=== PATIENT | male | born 1965 | race Caucasian/White ===

== ENCOUNTER 2020-04-29 04:30 | Observation (INO) | payer OTHER ==
[~2020-04-29] VITALS: Ht 160 cm; Wt 93.1 kg
--- NOTE | 2020-04-29 04:56 | EKG ---
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
[2020-04-29] MEDS ORDERED: NITROGLYCERIN OINT 1 GM PACKET. TP ONE (05:00)
[2020-04-29] MEDS ORDERED: IV RINGERS SOLUTION,LACTATED 1,000 ML IV SCH (05:00)
[2020-04-29] MEDS ORDERED: ASPIRIN CHEWABLE 81 MG TABLET. PO ONE (05:00)
[2020-04-29] MEDS ORDERED: MORPHINE SULFATE 2 MG/ML DISP.SYRIN. IV ONE (05:00)
[2020-04-29] MEDS ORDERED: ENOXAPARIN ** NOTE DOSE ** SYRINGE SQ ONE (05:00)
[2020-04-29 05:01] LABS: BASO % 1 % (0-3); EOS # 0.3 x10^3/uL (0.0-0.7); EOS % 5 % (0-3); HEMATOCRIT 42.3 % (39.0-53.0); HEMOGLOBIN 14.3 g/dL (13.0-17.5); LYMPH # 1.8 x10^3/uL (1.0-4.8); LYMPH % 24 % (24-48); MEAN CORPUSCULAR HEMOGLOBIN 31 pg (25-35); MEAN CORPUSCULAR HGB CONC 34 g/dL (31-37); MEAN CORPUSCULAR VOLUME 92 fL (79-100); MONO # 0.9 x10^3/uL (0.0-1.1); MONO % 12 % (0-9); NEUT # 4.5 x10^3uL (1.8-7.7); NEUT % 59 % (31-73); PLATELET COUNT 287 x10^3/uL (140-400); RED BLOOD COUNT 4.57 x10^6/uL (4.30-5.70); RED CELL DISTRIBUTION WIDTH 12.8 % (11.5-14.5); WHITE BLOOD COUNT 7.6 x10^3/uL (4.0-11.0)
[2020-04-29 05:09] LABS: CALCIUM 9.1 mg/dL (8.5-10.1); CREATININE 1.3 mg/dL (0.7-1.3); GFR 57.7; POTASSIUM 3.6 mmol/L (3.5-5.1)
[2020-04-29 05:26] LABS: ALBUMIN 3.3 g/dL (3.4-5.0); DIRECT BILIRUBIN 0.1 mg/dL (0.0-0.2); MAGNESIUM 2.1 mg/dL (1.8-2.4); TOTAL BILIRUBIN 0.3 mg/dL (0.2-1.0); TOTAL PROTEIN 7.2 g/dL (6.4-8.2)
[2020-04-29] MEDS ORDERED: MORPHINE SULFATE 2 MG/ML DISP.SYRIN. IVP PRN (06:15)
[2020-04-29] MEDS ORDERED: ONDANSETRON PF 4 MG/2 ML VIAL. IVP PRN (06:15)
--- NOTE | 2020-04-29 07:16 | RAD ---
Study: CR CHEST PA LATERAL Indication: Chest pain. Comparison: None. Findings: Within normal limits cardiomediastinal silhouette and leslie. No lobar consolidation, pleural effusion or pneumothorax. Impression: No acute radiographic abnormality of the chest. Electronically signed by: PUSHPA CASTRO MD (04/29/2020 7:13 AM) [id number]
--- NOTE | 2020-04-29 07:32 | PHYS DOC ---
Past History Past Medical History: Diabetes, Hypertension Past Surgical History: No Surgical History Smoking: Non-smoker Alcohol Use: Occasionally General Adult EDM: Chief Complaint: CHEST PAIN HPI: HPI: ".. I was just resting and sleeping .. but I got this severe chest pain.. .here in my Lt upper chest.. it radiated over in to my Lt shoulder .. just to about mid Lt. arm...It s been constant now about 30 minutes..." Patient is a 54 year old male who presents with above history of onset of acute left-sided chest pain that radiates into left deltoid area. Patient states he did have some shortness of breath and was diaphoretic. Patient denies any previous cardiac disorder. Does have a history of hypertension and did take hypertensive meds for a while approximately 5 years ago but stopped because they made him feel tired. Patient does not smoke. Patient denies any illicit drug use. Patient denies any trauma. Patient denies any travel or specific ill cont acts. No history of fever or chills. Does have a history of of episode of hypokalemia. Has been told that his blood sugars been elevated in the past. Patient not currently on any hypertensive meds. Patient does not currently follow-up with primary care. Review of Systems: Review of Systems: Constitutional: Denies fever or chills Eyes: Denies change in visual acuity HENT: Denies nasal congestion or sore throat Respiratory: Denies cough or shortness of breath Cardiovascular: Complains of left sided chest pain GI: Denies abdominal pain, nausea, vomiting, bloody stools or diarrhea : Denies dysuria Musculoskeletal: Denies back pain or joint pain Integument: Denies rash Neurologic: Denies headache, focal weakness or sensory changes Endocrine: Denies polyuria or polydipsia Lymphatic: Denies swollen glands Psychiatric: Denies depression or anxiety Heart Score: HEART Score for Chest Pain: HEART Score for Chest Pain Response (Comments) Value History Slighlty/Non-Suspicious 0 ECG Normal 0 Age >45 - < 65 1 Risk Factors 1 or 2 Risk Factors 1 Troponin < Normal Limit 0 Total 2 Risk Factors: Risk Factors: DM, Current or recent (<one month) smoker, HTN, HLP, family history of CAD, obesity. Risk Scores: Score 0 - 3: 2.5% MACE over next 6 weeks - Discharge Home Score 4 - 6: 20.3% MACE over next 6 weeks - Admit for Clinical Observation Score 7 - 10: 72.7% MACE over next 6 weeks - Early Invasive Strategies Family History: Family History: Hypertension Current Medications: Current Meds: See nursing for home meds Current Medications Medications (Trade) Dose Ordered Sig/Cori Start Time Stop Time Status Last Admin Dose Admin Aspirin (Aspirin Chewable) 81 mg [id number] 04/30/20 08:00 Enoxaparin Sodium (Lovenox 100mg Syringe) 100 mg Q12H 04/29/20 17:00 Lactated Ringer's 1,000 ml @ 100 mls/hr Q10H 04/29/20 05:00 04/29/20 14:59 04/29/20 05:14 100 MLS/HR Morphine Sulfate (Morphine 2mg Syringe) 2 mg PRN Q6HRS PRN 04/29/20 06:15 04/30/20 06:14 Nitroglycerin (Nitro-Bid Oint) 1 inch Q8HRS 04/29/20 14:00 Ondansetron HCl (Zofran) 4 mg PRN Q4HRS PRN 04/29/20 06:15 04/30/20 06:14 Allergies: Allergies: Allergies Coded Allergies Type Severity Reaction Last Updated Verified No Known Drug Allergies 04/29/20 No Physical Exam: PE: Constitutional: in acute distress, non-toxic appearance. [] HENT: Normocephalic, atraumatic, bilateral external ears normal, oropharynx moist, no oral exudates, nose normal. [] Eyes: PERRLA, EOMI, conjunctiva normal, no discharge. [] Neck: Normal range of motion, no tenderness, supple, no stridor. [] Cardiovascular:Heart rate regular rhythm, no murmur [] PMI slightly to the left Lungs & Thorax: Bilateral breath sounds equal at apex on auscultation [] Abdomen: Bowel sounds normal, soft, no tenderness, no masses, no pulsatile masses. Obese. Skin: Warm, diaphoretic, no erythema, no rash. Tattoos Back: No tenderness, no CVA tenderness. [] Extremities: No tenderness, no cyanosis, no clubbing, ROM intact, no edema. No cording appreciated Neurologic: Alert and oriented X 3, normal motor function, normal sensory function, no focal deficits noted. [] Psychologic: Affect anxious, judgement normal, mood normal. [] Current Patient Data: Labs: Laboratory Tests Test 04/29/20 04:38 White Blood Count 7.6 x10^3/uL (4.0-11.0) Red Blood Count 4.57 x10^6/uL (4.30-5.70) Hemoglobin 14.3 g/dL (13.0-17.5) Hematocrit 42.3 % (39.0-53.0) Mean Corpuscular Volume 92 fL (79-100) Mean Corpuscular Hemoglobin 31 pg (25-35) Mean Corpuscular Hemoglobin Concent 34 g/dL (31-37) Red Cell Distribution Width 12.8 % (11.5-14.5) Platelet Count 287 x10^3/uL (140-400) Neutrophils (%) (Auto) 59 % (31-73) Lymphocytes (%) (Auto) 24 % (24-48) Monocytes (%) (Auto) 12 % (0-9) H Eosinophils (%) (Auto) 5 % (0-3) H Basophils (%) (Auto) 1 % (0-3) Neutrophils # (Auto) 4.5 x10^3uL (1.8-7.7) Lymphocytes # (Auto) 1.8 x10^3/uL (1.0-4.8) Monocytes # (Auto) 0.9 x10^3/uL (0.0-1.1) Eosinophils # (Auto) 0.3 x10^3/uL (0.0-0.7) Basophils # (Auto) 0.0 x10^3/uL (0.0-0.2) Prothrombin Time 9.5 SEC (9.4-11.4) Prothrombin Time INR 0.9 (0.9-1.1) Activated Partial Thromboplast Time 25 SEC (23-33) D-Dimer (Marilyn) 0.34 mg/L (0.00-0.50) Sodium Level 138 mmol/L (136-145) Potassium Level 3.6 mmol/L (3.5-5.1) Chloride Level 99 mmol/L (98-107) Carbon Dioxide Level 27 mmol/L (21-32) Anion Gap 12 (6-14) Blood Urea Nitrogen 21 mg/dL (8-26) Creatinine 1.3 mg/dL (0.7-1.3) Estimated GFR (Cockcroft-Gault) 57.7 Glucose Level 214 mg/dL (70-99) H Calcium Level 9.1 mg/dL (8.5-10.1) Magnesium Level 2.1 mg/dL (1.8-2.4) Total Bilirubin 0.3 mg/dL (0.2-1.0) Direct Bilirubin 0.1 mg/dL (0.0-0.2) Aspartate Amino Transferase (AST) 19 U/L (15-37) Alanine Aminotransferase (ALT) 29 U/L (16-63) Alkaline Phosphatase 68 U/L (46-116) Creatine Kinase 321 U/L (39-308) H Troponin I Quantitative < 0.017 ng/mL (0-0.055) GT-Nga-Q-Type Natriuretic Peptide 11 pg/mL (0-124) Total Protein 7.2 g/dL (6.4-8.2) Albumin 3.3 g/dL (3.4-5.0) L Lipase 116 U/L (73-393) Vital Signs: Vital Signs Date Time Temp Pulse Resp B/P (MAP) Pulse Ox O2 Delivery O2 Flow Rate FiO2 04/29/20 06:27 64 16 129/76 (93) 96 Room Air 04/29/20 04:30 98.2 EKG: EKG: My interpretation EKG shows a sinus rhythm at 75 bpm. No findings of acute morphology or STEMI with contralateral changes [] Radiology/Procedures: Radiology/Procedures: [][address] [place] [id number] IMAGING REPORT Signed PATIENT: NADIA JIMENEZ ACCOUNT: [id number] : 1965 LOCATION: ER AGE: 54 SEX: M EXAM STATUS: REG ER ORD. PHYSICIAN: JAQUELIN RODRIGUEZ MD REASON: cp PROCEDURE: CHEST PA & LATERAL Study: CR CHEST PA LATERAL Indication: Chest pain. Comparison: None. Findings: Within normal limits cardiomediastinal silhouette and leslie. No lobar consolidation, pleural effusion or pneumothorax. Impression: No acute radiographic abnormality of the chest. Electronically signed by: PUSHPA CASTRO MD (04/29/2020 7:13 AM) [id number] DICTATED AND SIGNED BY: PUSHPA CASTRO MD DATE: 04/29/20712 CC: JAQUELIN RODRIGUEZ MD; PATRICIA CLAYTON ~ Course & Med Decision Making: Course & Med Decision Making Pertinent Labs and Imaging studies reviewed. (See chart for details) Discussed presentation, testing and treatment plan with Dr. Nevarez. Will await for chest pain rule out and cardiology consult. 0500 hrs. Patient still awaiting transfer up the [place] at 0700 hrs. UA results pending. Patient reports no chest pain at 0700 hrs. Impression: 1. Chest pain 2. Hypertension 3. Diabetes glucose 287 4.. Elevated monocytes 12 5. Elevated CK 321 [] Dragon Disclaimer: Dragon Disclaimer: This electronic medical record was generated, in whole or in part, using a voice recognition dictation system. Departure Departure: Impression: Primary Impression: Chest pain Disposition: ADMITTED INPATIENT Condition: GUARDED Referrals: PCP,NO Patient Instructions: Chest Pain (Nonspecific), [id number] Additional Instructions: Admit to Dr. Nevarez with Cardiology consult. Justification of Admission: Justification of Admission: Justification of Admission Dx: Yes Angina: New-Onset Dragon Disclaimer This chart was dictated in whole or in part using Voice Recognition software in a busy, high-work load, and often noisy Emergency Department environment. It may contain unintended and wholly unrecognized errors or omissions. JAQUELIN RODRIGUEZ MD Apr 29, 2020 07:32
[2020-04-29 09:54] VITALS: BP 153/96
[2020-04-29 10:23] LABS: BARBITURATES NEG (NEG); BENZODIAZEPINES NEG (NEG); CANNABINOIDS NEG (NEG); COCAINE NEG (NEG); METHADONE NEG (NEG); OPIATES POS (NEG); PHENCYCLIDINE NEG (NEG)
[2020-04-29 10:31] LABS: AMPHETAMINE/METHAMPHETAMINE POS (NEG)
[2020-04-29 10:48] LABS: THYROID STIM HORMONE (TSH) 3.993 uIU/mL (0.358-3.740)
[2020-04-29 10:53] LABS: BACTERIA,URINE 0 /HPF (0-FEW); BILIRUBIN,URINE NEG (NEG); CLARITY,URINE CLEAR; COLOR,URINE YELLOW; GLUCOSE,URINE 500 mg/dL (NEG); NITRITE,URINE NEG (NEG); SQUAMOUS EPITHELIAL CELL,UR OCC /LPF; UROBILINOGEN,URINE 0.2 mg/dL (0.2 mg/dL)
--- NOTE | 2020-04-29 11:14 | HP ---
ADMIT DATE: 04/29/2020 ATTENDING PHYSICIAN: Dr. Hills. CHIEF COMPLAINT: Chest and left shoulder pain. HISTORY OF PRESENT ILLNESS: The patient is a 54-year-old gentleman who awoke with supposedly left-sided chest pain, in actuality it started as left shoulder at the supraspinatus tendon. It is constant. He was concerned about having a heart attack. He has had hypertension in the past. He has borderline elevated blood sugars. He is a nonsmoker. There is no cardiac history or family history of heart disease. He was admitted for observation and serial enzymes. PAST MEDICAL HISTORY: Significant for essential hypertension. He stopped taking the medication. He has borderline diabetes. SOCIAL HISTORY: He is a nonsmoker, nondrinker. His urine drug screen did test positive for amphetamines in terms of recreational drugs. CURRENT MEDICATIONS: None scheduled. SOCIAL HISTORY: He is . He is employed for the [employer]. FAMILY HISTORY: Noncontributory. REVIEW OF SYSTEMS: He has been taking a lot of Advil [id number], which could contribute to his pain. He denied any palpitation, shortness of breath, nausea, vomiting. All other systems reviewed and turned to be negative. PHYSICAL EXAMINATION: GENERAL: When I saw him, this is a pleasant young gentleman. INITIAL VITAL SIGNS: Showed blood pressure 129/76 mmHg, temperature 98.2 degrees Fahrenheit, pulse was regular, oxygen saturation 96% on room air. HEENT: Head is without trauma. Pupils are reactive. Sclerae nonicteric. Oropharynx clear. NECK: Supple, no bruits. LUNGS: Otherwise clear. CARDIOVASCULAR: Showed regular heart tones. No gallops. Peripheral pulses are palpable and full. ABDOMEN: Soft, scaphoid, nontender. EXTREMITIES: Show no cyanosis or edema. NEUROLOGIC: Focally intact. He did have some point tenderness along the left supraspinatus tendon with trigger points. LABORATORY DATA: Hemoglobin is maintained at 14.3 g/dL with white count of 7600. Electrolytes are within normal range. Nonfasting blood sugar 214 mg/dL. Troponin levels are negative. Urine toxicology screen tested positive for opiates and methamphetamine. ASSESSMENT: 1. A 54-year-old gentleman with atypical chest pain. I suspect he has a component of left supraspinatus tendinitis. 2. Probable NSAID gastritis given history of ibuprofen use. 3. Essential hypertension. 4. Diabetes that has not been addressed. PLAN: 1. Admit to the inpatient observation unit. 2. Serial enzymes. 3. Diet as tolerated. 4. Monitor blood sugars. TC HILLS MD DR: JANELLE/cholo JOB#: [id number] / [id number]
--- NOTE | 2020-04-29 13:26 | DS ---
DATE OF DISCHARGE: 04/29/2020 ATTENDING PHYSICIAN: Dr. Hills. FINAL DISCHARGE DIAGNOSES: 1. Atypical chest pain, noncardiac, coronary ischemia ruled out. 2. Hypertension. 3. Probable diabetes. 4. Left supraspinatus tendinitis. HISTORY AND PHYSICAL: This is a 54-year-old gentleman with very minimal risk factors. He had new onset of left sided chest wall and shoulder pain and he came into the ED with symptoms. He was concerned about having heart disease or heart attack. In the Emergency Department cardiac enzymes are negative. EKG was unremarkable. Drug panel showed evidence of narcotics and methamphetamines. He had a fairly normal CBC, chemistry panel. He was admitted for observation to the hospitalist service. PHYSICAL EXAMINATION: Please see the dictated note. PERTINENT LABORATORY AND X-RAY STUDIES: Urine positive for amphetamines and opiates. Hemoglobin maintained at 14.3 g/dL with white count of 7600. Electrolytes, BUN and creatinine within normal range. Cardiac enzymes negative for coronary ischemia. Nonfasting blood sugar 214 mg/dL. COURSE IN THE HOSPITAL: The patient was examined, his symptoms improved and resolved by the time I saw him. He wanted to go home. I felt this is reasonable. I recommended a followup visit with Marcus Smith in 1 week time to set up fasting blood sugars and to monitor his blood pressure. At this time, I recommended Tylenol [id number] for his tendinitis and for some allergy symptoms I recommended some pseudoephedrine with loratadine. The patient was then discharged from our hospital in stable condition with explicit instructions and followup care. TC HILLS MD DR: JANELLE/cholo JOB#: [id number] / [id number] MARCUS Gao
[2020-04-29] MEDS ORDERED: NITROGLYCERIN OINT 1 GM PACKET. TP SCH (14:00)
--- NOTE | 2020-04-29 15:51 | EKG ---
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
[2020-04-29] MEDS ORDERED: ENOXAPARIN ** NOTE DOSE ** SYRINGE SQ SCH (17:00)
[2020-04-30] MEDS ORDERED: ASPIRIN CHEWABLE 81 MG TABLET. PO SCH (08:00)
== END 2020-04-29 10:59 | disposition home or self-care (01) ==
LOC: ER 04:30 → 1 SOUTH 06:00 → ER 09:38
PROVIDERS: ADMIT Hospitalist; ATTEND Hospitalist
DX: R07.89 Other chest pain (principal); Z20.828 Contact with and (suspected) exposure to other viral communicable diseases; I10 Essential (primary) hypertension; E11.65 Type 2 diabetes mellitus with hyperglycemia; Z79.899 Other long term (current) drug therapy
CPT/HCPCS: 36415; 71046; 80048; 80061; 80076; 80307; 81001; 82550; 83690; 83735; 83880; 84443; 84484; 85025; 85379; 85610; 85730; 93005; 96361; 96372; 96374; 99285; G0378; J1650; J2270; J7120; U0003; G0379